=== PATIENT | male | born 1970 | race Caucasian/White ===

== ENCOUNTER 2023-07-24 09:05 | Day surgery (SDC) | payer BC, OTHER ==
[2023-07-23 09:23] VITALS: BMI 32.7
[~2023-07-24 09:05] MED LIST: LACTATED RINGERS 1,000 ML IV SCH
[2023-07-24] MEDS: LACTATED RINGERS 1,000 ML IV ONE (10:13)
[2023-07-24] MEDS ORDERED: PROPOFOL 10 MG/ML 20 ML VIAL IV ONE (10:45)
[2023-07-24 10:56] VITALS: TEMP 97
--- NOTE | 2023-07-24 11:01 | P.PCN ---
Date of Procedure: 07/24/23 Procedure(s) Performed: BRIEF HISTORY: Patient is a 53-year-old pleasant white male scheduled for an elective colonoscopy as a part of screening for colon cancer/positive cologuard. PROCEDURE PERFORMED: Colonoscopy with biopsy and snare polypectomy. PREOPERATIVE DIAGNOSIS: Screening for colon cancer/positive cologuard. IV sedation per Anesthesia. PROCEDURE: After informed consent was obtained, the patient, was brought into the endoscopy unit. IV sedation was administered by Anesthesia under continuous monitoring. Digital rectal examination was normal. Initially the Olympus CF-160 flexible video colonoscope was then inserted in the rectum, gradually advanced into the cecum without any difficulty. Careful examination was performed as the scope was gradually being withdrawn. Ileocecal valve and the appendiceal orifice were visualized and appeared normal. Prep was excellent. Mucosa of the cecum, ascending colon, transverse colon appeared normal. In the descending colon there was a 4 mm polyp that was removed by cold biopsy. In the sigmoid there was a 1.2 cm pedunculated polyp removed by snare polypectomy. Rest of the, descending colon, sigmoid colon, and rectum appeared normal. Retroflexion was performed in the rectum and no lesions were seen. The patient tolerated the procedure well. IMPRESSION: 4 mm descending colon polyp status post cold biopsy 1.2 cm pedunculated sigmoid polyp status post polypectomy RECOMMENDATIONS: Findings of this examination were discussed with the patient as well as his family.. He was advised to follow with the biopsy results. If the biopsy reveals adenoma he can have a repeat colonoscopy in 3 years.
[2023-07-24 11:34] VITALS: BP 118/73; PULSE 77; RESP 20
== END 2023-07-24 11:44 | disposition home or self-care (01) ==
LOC: ORWHC2ENDO 09:05
PROVIDERS: ATTEND Internal Medicine Gastroenterology
DX: D12.4 Benign neoplasm of descending colon (principal); D12.5 Benign neoplasm of sigmoid colon; I10 Essential (primary) hypertension; E78.5 Hyperlipidemia, unspecified; Z79.899 Other long term (current) drug therapy
CPT/HCPCS: 88305; 45380; 45385; J2704